=== PATIENT | female | born 1965 | race Caucasian/White ===

== ENCOUNTER 2017-08-21 08:42 | Outpatient (CLI) | payer OTHER ==
--- NOTE | 2017-08-21 12:57 | ULT ---
LEFT BREAST ULTRASOUND: Date: 08/21/17 HISTORY: Breast mass. COMPARISON: Diagnostic mammogram from same date. FINDINGS: Evaluation of the left breast was performed by the technologist and then real-time by the radiologis t. There is shadowing hypoechoic mass with peripheral echogenic halo with angular margins left breas t, 5 o'clock, 4.0 cm from the nipple, measuring 2.5 x 1.9 cm. There are abnormal calcifications with in this mass. IMPRESSION: BIRADS 5: Highly Suggestive of Malignancy Ultrasound guided biopsy recommended. Patient is on the Fast[employer] and therefore biopsy will be done today. Findings were discussed with yoseph yun patient at the time of the examination. POS: GILBERT
--- NOTE | 2017-08-21 13:00 | ULT ---
ULTRASOUND GUIDED BREAST BIOPSY: Date: 08/21/17 HISTORY: Breast mass. COMPARISON: Breast ultrasound from same date. Diagnostic mammogram from same date. TECHNIQUE/FINDINGS: Patient was brought to the ultrasound suite. All questions were answered. Informed consent was obtai tomasz. Timeout was performed. The left breast was prepped and draped in the normal sterile fashion. 4 mL of buffered lidocaine was instilled into the superficial deep soft tissues. A total of three 14 gauge cores of the breast mas s were obtained. This was done with meticulous technique as to prevent rupture of the breast implant . The patient tolerated the procedure well. A clip was placed. Post clip mammogram demonstrated sati sfactory placement of the clip. IMPRESSION: Technically successful left breast mass biopsy. Pathology is pending. POS: GILBERT
--- NOTE | 2017-08-21 13:09 | MMO ---
BILATERAL DIAGNOSTIC MAMMOGRAM: Date: 08/21/17 HISTORY: Palpable mass left breast. COMPARISON: None available. TECHNIQUE: Bilateral diagnostic CC, MLO, and ML mammograms, as well as implant displaced CC and MLO mammograms, as well as left spot compression CC and MLO mammograms. This patient's mammogram was interpreted with the assistance of computer-aided detection. FINDINGS: There are scattered fibroglandular densities. The palpable marker has a spiculated mass with heterog eneous suspicious calcifications in a ductal orientation. Implants are intact. No abnormal lymph nodes. IMPRESSION: BIRADS 5: Highly Suggestive of Malignancy Ultrasound guided biopsy is recommended. Findings discussed with patient at the time of examination. The patient's physician is a Cristina brand hymeliton and therefore a biopsy will be performed. POS: GILBERT
--- NOTE | 2017-08-21 13:10 | MMO ---
LEFT BREAST DIAGNOSTIC POST CLIP MAMMOGRAM: Date: 08/21/17 HISTORY: Post clip biopsy mammogram. Patient just had a biopsy and mammogram is obtained to evaluate for clip placement and to ensure satisfactory positioning of the biopsy. FINDINGS: The clip is in satisfactory position within the left breast mass. IMPRESSION: Satisfactory appearance of the breast clip biopsy. POS: GILBERT
== END 2017-08-21 08:43 | disposition home or self-care (01) ==
LOC: MAMMO 08:42
PROVIDERS: ATTEND Family Medicine
DX: N63.20 Unspecified lump in the left breast, unspecified quadrant (principal); C50.912 Malignant neoplasm of unspecified site of left female breast
CPT/HCPCS: 19083; 77066; 88305; 88341; 88342; G0204; G0206-LT

== ENCOUNTER 2017-09-05 08:28 | Outpatient (CLI) | payer OTHER ==
--- NOTE | 2017-09-05 14:02 | PET ---
PET CT: HISTORY: A 51-year-old female with invasive ductal carcinoma of the left breast. Exam was requested for resta ging. TECHNIQUE: PET scanning with CT attenuation correction was performed from the base of the brain through the prox imal thighs following the intravenous administration of 12 mCi [id number] in the right an tecubital fossa. Imaging was performed after an uptake interval of 45 minutes. COMPARISON: None. FINDINGS: There is increased uptake in the left breast mass with an SUV of 6. No dorian hypermetabolism is seen in the axillae, internal mammary, mediastinal, hilar, cervical, or abdominopelvic lymph nodes. No hypermetabolic liver, adrenal, or skeletal lesions are identified. There is increased focal uptake in the left adnexa (likely ovary) with an SUV of 4.5. There is physiologic activity in the GI and tracts and the visualized portions of the brain. The CT scan used for attenuation correction demonstrates no evidence of pleural effusions or ascites. Bilateral breast implants are present. The patient is status post hysterectomy and cholecystectomy . There is sigmoid diverticulosis. IMPRESSION: 1. Left breast malignancy. No definite evidence of metastatic disease. 2. Focally increased uptake in the left adnexa, likely ovary. It cannot be said with certainty if t his is physiologic or pathologic(neoplastic). Further evaluation with pelvic ultrasound is recommend ed. POS: GILBERT
== END 2017-09-05 08:29 | disposition home or self-care (01) ==
LOC: PET 08:28
PROVIDERS: ATTEND Internal Medicine Hematology & Oncology
DX: C50.512 Malignant neoplasm of lower-outer quadrant of left female breast (principal)
CPT/HCPCS: 78815; A9552

== ENCOUNTER 2017-10-02 11:08 | Outpatient (CLI) | payer OTHER ==
[2017-10-02 14:48] LABS: Bilirubin Negative (Negative); Blood, Urine Negative (Negative); Glucose, Urine (Dipstick) Negative (Negative); Ketone, Urine Negative (Negative); Nitrite Negative (Negative); Protein, Urine (Dipstick) Negative (Neg-Trace); Urobilinogen 0.2 mg/dL (0.2-1.0)
[2017-10-02 14:54] LABS: Bacteria/HPF None Seen HPF (None Seen); Hyaline Casts/LPF 0-3 HYALINE CAST LPF (0-3 Hyaline); RBC/HPF 0-3 HPF (0-3); Squamous Epithelial 0-3 HPF (0-3); WBC/HPF None Seen HPF (0-3)
[2017-10-02 14:55] LABS: #Eosinphils 0.1 thou/uL (0.0-0.7); #Lymphocytes 2.1 thou/uL (1.20-3.40); #Monocytes 0.6 thou/uL (0.11-0.59); #Neutrophils 5.7 thou/uL (1.40-6.50); %Basophils 0.4 % (0.0-1.0); %Eosinophils 1.3 % (0.0-10.0); %Monocytes 6.6 % (0.0-10.0); Hematocrit 44.2 % (36.0-47.0); Mean Platelet Volume 8.1 fL (7.4-10.4); Red Blood Cell (RBC) Count 4.51 mill/uL (4.20-5.40); White Blood Cell (WBC) Count 8.5 thou/uL (4.8-10.8)
[2017-10-02 15:09] LABS: Anion Gap 9 mmol/L (10-20); BUN (Urea Nitrogen) 16 mg/dL (9.8-20.1); Calc. Creatinine Clearance 0 mL/min (70-130); Calcium 9.6 mg/dL (7.8-10.44); Carbon Dioxide 27 mmol/L (22-29); Chloride 105 mmol/L (98-107); Estimated GFR-MDRD 67
== END 2017-10-02 11:09 | disposition home or self-care (01) ==
LOC: LABBT 11:08
PROVIDERS: ATTEND Surgery
DX: Z01.818 Encounter for other preprocedural examination (principal); C50.912 Malignant neoplasm of unspecified site of left female breast
CPT/HCPCS: 80048; 81001; 85025; 93005; 93010

== ENCOUNTER 2017-10-09 07:15 | Inpatient (IN) | payer OTHER ==
[2017-10-02 11:31] VITALS: BMI 27.8
[2017-10-09] MEDS ORDERED: CEFAZOLIN/Water 2 GM/20 ML SYRINGE ONE (09:26)
--- NOTE | 2017-10-09 10:46 | NM ---
RADIONUCLIDE LYMPHOSCINTIGRAPHY LEFT BREAST: Date: 10/09/17 HISTORY: Left breast cancer. FINDINGS: After explaining the procedure and answering all questions, the periareolar skin of the left breast w as cleansed. Sterile technique was used to carefully inject a total of 0.4 mCi technetium-99m filtere d sulfur colloid in a total volume of 1 mL in four equal aliquots intradermally at the 12 o'clock, 3 o'clock, 6 o'clock, and 9 o'clock positions of the left breast. Immediate imaging showed focal uptake at the axillary tail of the left breast. Skin over the uptake was marked and patient was sent for surgery. Patient tolerated the procedure wel l and was transferred in good condition. IMPRESSION: Technically successful lymphoscintigraphy left breast revealing single sentinel lymph node at the axi llary tail left breast. POS: GILBERT
[2017-10-09] MEDS ORDERED: Bupivacaine/Epinephrine 0.25% 30 ML VIAL ONE ×2 (10:51→13:21)
[2017-10-09] MEDS ORDERED: Propofol 200 MG/20 ML VIAL ONE (11:12)
[2017-10-09] MEDS ORDERED: Dexamethasone 20 MG/5 ML VIAL ONE (11:12)
[2017-10-09] MEDS ORDERED: Ondansetron HCl/PF 4 MG/2 ML Vial ONE (11:12)
[2017-10-09] MEDS ORDERED: Ketorolac Tromethamine 30 MG/ML VIAL ONE (11:12)
[2017-10-09] MEDS ORDERED: ePHEDrine/0.9% NaCl/PF SYRINGE 50 mg/10 ml ONE (11:12)
[2017-10-09] MEDS ORDERED: Lidocaine 1% PF 5 ML VIAL ONE (11:12)
[2017-10-09] MEDS ORDERED: Metoclopramide HCl 10 MG/2 ML VIAL ONE (11:12)
[2017-10-09] MEDS ORDERED: Midazolam HCl 2 mg/2 ml Vial ONE ×2 (11:14→11:26)
[2017-10-09] MEDS ORDERED: Fentanyl 250 MCG/5 ML VIAL ONE (11:14)
[2017-10-09] MEDS ORDERED: HYDROmorphone 0.5 MG/0.5 ML SYRINGE ONE (11:15)
[2017-10-09] MEDS ORDERED: Propofol 1,000 MG/100 ML VIAL IV ONE (11:54)
[2017-10-09] MEDS ORDERED: Clindamycin/D5W 900 mg/50 ml Premix Bag ONE (12:02)
[2017-10-09] MEDS ORDERED: Thrombin 5000 UNITS/5 ML VIAL ONE (12:41)
[2017-10-09] MEDS ORDERED: Calcium Chloride 1 GM/10 ML Abboject SYRINGE ONE (12:42)
[2017-10-09] MEDS ORDERED: Levofloxacin 500 mg/D5W 100 ml Premix Bag ONE (13:01)
[2017-10-09] MEDS ORDERED: Fentanyl 100 MCG/2 ML VIAL ONE ×2 (16:31→17:08)
[2017-10-09] MEDS ORDERED: Promethazine HCl 25 MG/ML VIAL ONE (17:35)
[2017-10-09] MEDS ORDERED: diphenhydrAMINE 50 MG/ML VIAL IM PRN (18:14)
[2017-10-09] MEDS ORDERED: Ondansetron HCl/PF 4 MG/2 ML Vial IVP PRN ×3 (18:14→21:21)
[2017-10-09] MEDS ORDERED: Zolpidem Tartrate 5 MG TAB PO PRN (18:14)
[2017-10-09] MEDS ORDERED: diphenhydrAMINE 25 MG CAP PO PRN (18:14)
[2017-10-09] MEDS ORDERED: diphenhydrAMINE 50 MG/ML VIAL IVP PRN (18:14)
[2017-10-09] MEDS ORDERED: Naloxone HCl 0.4 mg/ml Vial IV PRN (18:14)
[2017-10-09] MEDS ORDERED: Fentanyl 5000 MCG/250 ML CADD IVPB PRN (18:14)
[2017-10-09] MEDS ORDERED: Promethazine HCl 25 MG/ML VIAL IM PRN ×2 (18:14→21:21)
[2017-10-09] MEDS ORDERED: Communication Order-Pharmacy FS SCH (18:15)
[2017-10-09] MEDS ORDERED: Dextrose 5% in Water 1,000 ML IV PRN (20:11)
[2017-10-09] MEDS ORDERED: hydrALAZINE 20 MG/ML VIAL SLOW IVP PRN (20:11)
[2017-10-09] MEDS ORDERED: Dextrose 50% Abboject 50 ML SYRINGE SLOW IVP PRN (20:11)
[2017-10-09] MEDS ORDERED: Promethazine HCl 25 MG/ML VIAL SLOW IVP PRN (21:21)
[2017-10-10] MEDS ORDERED: Levothyroxine Sodium 75 MCG TAB PO SCH (06:00)
[2017-10-10] MEDS: D5 1/2 NS w/20 mEq KCL 1,000 ML IV SCH ×2 (06:44→08:38)
[2017-10-10] MEDS: Famotidine 20 MG TAB PO SCH ×2 (06:45→09:27)
[2017-10-10] MEDS: Docusate 100 MG CAP PO SCH ×2 (06:45→09:27)
[2017-10-10 08:24] VITALS: BP 101/54; TEMP 98.7
[2017-10-10] MEDS ORDERED: HYDROcodone/Acetaminophen 10/325 mg Tablet PO PRN ×2 (10:46)
--- NOTE | 2017-10-10 14:07 | OP ---
DATE OF PROCEDURE: 10/09/2017 ATTENDING STAFF PHYSICIAN: Dr. Grey Rodríguez. SURGEONS: 1. Dr. Grey Rodríguez. 2. Dr. Paul Oconnell. PREOPERATIVE DIAGNOSES: 1. Recent diagnosis of breast cancer. 2. Abnormal PET scan showing abnormal left ovary. 3. Desires risk reduction oophorectomy. POSTOPERATIVE DIAGNOSES: 1. Recent diagnosis of breast cancer. 2. Abnormal PET scan showing abnormal left ovary. 3. Desires risk reduction oophorectomy. 4. Abdominal pelvic adhesions. PROCEDURES PERFORMED: 1. Diagnostic laparoscopy. 2. Robotic-assisted bilateral salpingo-oophorectomy. 3. Extensive lysis of adhesions. 4. Autologous hemocyte tissue grafting (PlazMax). ANESTHESIA: General endotracheal. FINDINGS: 1. Abnormal PET scan showing increased uptake in the left ovary and adnexal fossa. 2. Normal appearing ovaries on ultrasound. 3. Extensive abdominal pelvic adhesions - left colon to left pelvic sidewall, tube and ovary, omentu m to anterior cul-de-sac, right tubo-ovarian. COMPLICATIONS: None. SPECIMENS REMOVED: Bilateral fallopian tubes and ovaries. ESTIMATED BLOOD LOSS: Less than 100 mL. PROCEDURE FOLLOWS: After thorough consent and counseling, Ms. Jin was taken to the operating room and adequate level of anesthesia was obtained via general endotracheal anesthesia. The patient was p laced in the Mohan stirrups in the low leg position. Pelvic examination under anesthesia was perform ed. Findings were consistent with that in the clinical setting. The patient was noted to have a bruna gically absent cervix and uterus. There were no adnexal masses noted. There was no fixation or nodu larity of the cul-de-sac. The patient was then prepped and draped in the usual sterile fashion for [facility] vaginal and abdominal surgery. A sponge stick was placed. The patient was then prepped and drap ed in the usual sterile fashion for the Mohan surgical procedures. A speculum was placed in the vaginal canal and visualization of the vaginal cuff was obtained, which appeared normal. A sponge stick was placed in the vaginal canal to assist with manipulation of the v aginal cuff and cul-de-sac as necessary. A Benz was placed in the bladder, which was noted to be dr louisning clear urine. Attention was then turned to performing the robotic bilateral salpingo-oophorect brice. An infraumbilical incision was made and the old scar was excised. The incision was carried sharply t o the fascia. A Veress needle was then placed transabdominally with the usual safeguards carried out . Hanging drop water technique was utilized to ensure proper placement of the Veress needle. A 12 m m trocar and sleeve was then carefully placed transabdominally with usual safeguards carried out. Th e da Symplified robotic camera was then placed transabdominally and visualization of the upper abdomen and pelvis was obtained. There were filmy adhesions noted throughout the lower abdomen and pelvis. The re were dense adhesions noted from the descending colon to the left pelvic sidewall with essentially obliteration of the left ovarian fossa. There were filmy adhesions noted on the right side. There w ere also filmy adhesions noted to the bladder. Under direct laparoscopic visualization, the lateral ports were placed. Illumination technique was utilized to avoid vascular injury upon placement of th e lateral ports. Once the ports were placed, the patient was docked to the robot per protocol. I th en assumed my operating position at the da Philip surgical console. Under direct laparoscopic visualization, robotic instrumentation was carefully introduced into the ab domen and the pelvis. Instruments used to perform the RBSO included the Kleppinger bipolar forceps a nd the electrosurgical EndoShears. Initially, the filmy adhesions were carefully and meticulously ta kayleigh down. Attention was turned to removing the adhesions from the pelvic sidewall to the descending colon. Cold electrosurgical enterolysis was performed. Once the colon was free from the left pelvic sidewall and the left ovarian fossa, the left fallopian tube and ovary could be visualized. There w as a small paratubal cyst noted. The left fallopian tube was then grasped and retracted medially. T he left fallopian tube was then grasped at the uteroovarian ligament and vessels, coagulated and bhatia sected. Dissection was carried out through the mesosalpinx to the level of the infundibulopelvic lig ament and vessels. The tube was then transected. The ovary was carefully freed from the pelvic side wall. Once free, the ureter was carefully identified and noted to be traversing well off the operati ve planes. The infundibulopelvic ligament then could be identified. A rent was made in the peritone um below the left IP ligament and vessels. Once the ureter was again identified and noted to be linsey ersing out the operative field, the infundibulopelvic ligament vessels were crossclamped, coagulated and transected. Good hemostasis was noted. Additional lysis of adhesions was required to remove the left ovary from the pelvic sidewall. The descending colon was completely freed from the left pelvic sidewall, the pelvic brim and the lower part of the pelvic sidewall inferiorly. Good hemostasis was noted. Attention was then turned performing the LLSO. The filmy adhesions were taken down on the r ight. The ureter was then easily identified. The infundibulopelvic ligament vessels were carefully isolated. The fallopian tube on the right was grasped at the tubo-ovarian ligament. This pedicle wa s then crossclamped, coagulated and transected. Dissection was carried down the mesosalpinx to the I P ligament and vessels. The right fallopian tube was then carefully crossclamped, coagulated and tra nsected. Once again, the IP ligament vessels were then identified. The ureter was identified on the pelvic sidewall and noted to be traversing out of the operative field. A rent was made in the perit oneum below the right IP ligament and vessels. The right IP ligament vessels were then carefully quality control microbiology supervisor ssclamped, coagulated and then transected. Dissection was carried superiorly until the ovary was marion e from the pelvic sidewall. All specimens were placed in the anterior cul-de-sac. Completion of andrea is of adhesions was performed by removing the omentum from the anterior cul-de-sac. The pelvis was t hen irrigated with copious amount of warm normal saline. All surgical pedicles were inspected and no tommy to be hemostatic. Because of the extensive dissection and adhesions, autologous hemocyte tissue grafting was performed. Platelet poor plasma was injected over all. Surgical sites and areas where enterolysis was performed. PlazMax was injected in the anterior cul-de-sac and the posterior cul-de- sac as well. The ureters were again identified and were felt to be out of the operative planes. The umbilical trocar was then removed. The Josie suture guide was then placed in the umbilical incis ion. Using the Kimberly needle pick up driver, a suture was introduced on the right side under direct visualization. The suture guide was then placed on the left side and the suture was grasped and jovon vated out of the suture guide. The suture guide was then removed and the fascia was reapproximated u sing a 2-0 Vicryl suture. This was done under direct laparoscopic visualization. There was good bobo sure noted to the umbilical port. The remainder of the ports were then removed as was the CO2 gas. The incisions were then closed with subcutaneous ligatures of 2-0 plain in a subcuticular stitch of 4 -0 Monocryl. Each incision was then dressed with Dermabond. The sponge stick was removed from the v agina. Lap, sponge and needle counts were correct x3. Blood loss during the surgical procedure was less than [address] Oconnell presented to the OR at this point to carry out the mastectomy and his portion of the surg ical procedures. Please see his operative report for summary. Immediately following surgery, the patient and family were made aware of the surgical procedure and f indings. Questions were answered to their satisfaction.
--- NOTE | 2017-10-11 11:57 | OP ---
DATE OF PROCEDURE: 10/09/2017 PREOPERATIVE DIAGNOSIS: Left breast cancer, clinical stage T2 N0 MX. POSTOPERATIVE DIAGNOSIS: Left breast cancer, clinical stage T2 N0 MX. PROCEDURE: 1. Bilateral simple mastectomy, nipple-sparing. . 2. Left deep axillary node biopsy (sentinel node protocol). SURGEON: Felipe Oconnell M.D. ANESTHESIA: General. ESTIMATED BLOOD LOSS: Minimal. COMPLICATIONS: None. SPECIMEN: Each breast was marked with two short superior, one long lateral as well as the nipple was marked and sent to pathology for final diagnosis. INDICATION: The patient is a 51-year-old female who presents with a new diagnosis of left breast can cer, clinical stage T2 N0. Her BRCA testing was negative, but she elected to proceed with bilateral nipple-sparing mastectomy. She has already seen Dr. Sanz who recommended a delayed reconstruction. TECHNIQUE: The patient was taken to the operating room and placed supine on the table. She had alre aide had preoperative lymphoscintigraphy performed and x-ray which revealed uptake in the left axilla. Her bilateral chest, neck, arms were prepped and draped in a sterile fashion. A 7 cm incision was made just above in inframammary crease. Dissection was taken down to the muscle of the chest wall. The posterior plane was mobilized all the way to the sternum, latissimus dorsi as well as up near the clavicle. The right breast was done first. Next, the subcutaneous plane was raised by raising skin flaps all the way up to the same landmarks. Care was taken to avoid being too close to the skin. T he tail of the breast was removed with the specimen. The specimen is marked with two short superior, one long lateral, the nipple is marked on the specimen using a Prolene suture. Meticulous hemostasi s was obtained in the mastectomy bed. A 19 round drain brought out lateral, incision is irrigated an d closed using 3-0 Vicryl, 4-0 Monocryl, and Dermabond. Next, an inframammary fold crease incision i s made on the left as well and the mastectomy was performed in the same way by doing the posterior di ssection first all the way to the sternum, latissimus dorsi clavicle. The subcutaneous flaps are mccain sed all the way to the same landmarks thus removing the breast, the nipple was left in place. The sp ecimen was marked with two short superior, one long lateral, the nipple was marked using Prolene. Th e mastectomy cavity cavities irrigated and closed after a #19 round drain is brought out through a se parate stab incision and closed using 3-0 Vicryl, 4-0 Monocryl, and Dermabond. The patient was en ro erick to recovery in stable condition. All instrument counts, needle counts, and lap counts were corre ct.
== END 2017-10-10 12:30 | disposition home or self-care (01) | DRG 581 ==
LOC: SDC 07:15 → 3SW 19:21
PROVIDERS: ADMIT Surgery; ATTEND Surgery
PROC: 0HTV0ZZ Resection of Bilateral Breast, Open Approach (ICD-10-PCS; principal; 2017-10-09)
PROC: 0UT24ZZ Resection of Bilateral Ovaries, Percutaneous Endoscopic Approach (ICD-10-PCS; 2017-10-09)
PROC: 0UT74ZZ Resection of Bilateral Fallopian Tubes, Percutaneous Endoscopic Approach (ICD-10-PCS; 2017-10-09)
PROC: 0DNW4ZZ Release Peritoneum, Percutaneous Endoscopic Approach (ICD-10-PCS; 2017-10-09)
PROC: 07B60ZX Excision of Left Axillary Lymphatic, Open Approach, Diagnostic (ICD-10-PCS; 2017-10-09)
PROC: 8E0W4CZ Robotic Assisted Procedure of Trunk Region, Percutaneous Endoscopic Approach (ICD-10-PCS; 2017-10-09)
PROC: C71L1ZZ Planar Nuclear Medicine Imaging of Upper Chest Lymphatics using Technetium 99m (Tc-99m) (ICD-10-PCS; 2017-10-09)
DX: C50.512 Malignant neoplasm of lower-outer quadrant of left female breast (principal); E03.9 Hypothyroidism, unspecified; Z17.0 Estrogen receptor positive status [ER+]; Z98.82 Breast implant status; N73.6 Female pelvic peritoneal adhesions (postinfective); Z40.01 Encounter for prophylactic removal of breast; Z40.02 Encounter for prophylactic removal of ovary(s); N83.8 Other noninflammatory disorders of ovary, fallopian tube and broad ligament; Z90.710 Acquired absence of both cervix and uterus; Z80.41 Family history of malignant neoplasm of ovary; Z80.3 Family history of malignant neoplasm of breast
CPT/HCPCS: 78195; 88304; 88305; 88307; 88309; 88342; A9541; J0131; J1100; J1170; J1885; J1956; J2001; J2250; J2405; J2550; J2704; J2765; J3010; J3490; Q9968

== ENCOUNTER 2017-11-02 09:31 | Day surgery (SDC) | payer OTHER ==
[2017-11-01 10:24] VITALS: BMI 26.6
[2017-11-02] MEDS ORDERED: Heparin 5,000 UNITS/ML VIAL ONE (10:59)
[2017-11-02] MEDS ORDERED: CEFAZOLIN/Water 2 GM/20 ML SYRINGE ONE (10:59)
[2017-11-02] MEDS ORDERED: Gentamicin 80 MG/2 ML VIAL ONE ×2 (11:17→14:38)
[2017-11-02] MEDS ORDERED: Bupivacaine/Epinephrine 0.25% 30 ML VIAL ONE ×3 (11:17→14:15)
[2017-11-02] MEDS ORDERED: Fentanyl 100 MCG/2 ML VIAL ONE ×3 (11:18→16:06)
[2017-11-02] MEDS ORDERED: Sodium Chloride 0.9% 0 ML ONE (11:18)
[2017-11-02] MEDS ORDERED: Midazolam HCl 2 mg/2 ml Vial ONE ×3 (11:18→18:24)
[2017-11-02] MEDS ORDERED: Ondansetron HCl/PF 4 MG/2 ML Vial IVP PRN (12:07)
[2017-11-02] MEDS ORDERED: HYDROcodone/Acetaminophen 10/325 mg Tablet PO PRN ×2 (12:07)
[2017-11-02] MEDS ORDERED: Fentanyl 100 MCG/2 ML VIAL IV PRN (12:07)
[2017-11-02] MEDS ORDERED: Promethazine HCl 25 MG/ML VIAL IM PRN (12:07)
[2017-11-02] MEDS ORDERED: Zolpidem Tartrate 5 MG TAB PO PRN (12:07)
[2017-11-02] MEDS ORDERED: traMADol HCl 50 MG TAB PO PRN ×2 (12:07)
[2017-11-02] MEDS ORDERED: Ropivacaine HCl/PF 750 ML in Premix Bag 1 BAG NERVE BLCK SCH (12:15)
[2017-11-02] MEDS ORDERED: Ropivacaine 0.2% HCl/PF 20 ML ONE ×2 (12:34→14:16)
[2017-11-02] MEDS ORDERED: Clindamycin/D5W 900 mg/50 ml Premix Bag ONE (13:01)
[2017-11-02] MEDS ORDERED: Levofloxacin 500 mg/D5W 100 ml Premix Bag ONE (13:01)
[2017-11-02] MEDS ORDERED: Bupivacaine 0.25% HCL 30 ML VIAL ONE (14:14)
[2017-11-02] MEDS ORDERED: Sodium Chloride 0.9% 20 ML ONE (14:38)
[2017-11-02] MEDS ORDERED: Ropivacaine 0.5% HCl/PF (150 MG/30 ML VIAL) ONE (16:10)
[2017-11-02] MEDS ORDERED: Promethazine HCl 25 MG/ML VIAL ONE (16:15)
[2017-11-02] MEDS ORDERED: Ketorolac Tromethamine 30 MG/ML VIAL IVP SCH (18:00)
[2017-11-02] MEDS ORDERED: Lidocaine 1% (PF) 30 ML VIAL ONE (18:12)
[2017-11-02] MEDS ORDERED: HYDROcodone/Acetaminophen 5/325 mg Tablet ONE (19:43)
--- NOTE | 2017-11-02 23:12 | OP ---
PREOPERATIVE DIAGNOSIS: Breast cancer. POSTOPERATIVE DIAGNOSIS: 1. Breast cancer. 2. Status post bilateral mastectomy. 3. History of breast implants. PROCEDURES: 1. Bilateral placement of tissue expanders (49259.50). 2. Placement of acellular dermis (120 cm2) (30018, 59930). DESCRIPTION OF PROCEDURE: Following induction of adequate anesthesia, the patient was prepped and dr aped in the usual sterile fashion in the supine position. The patient's existing inframammary scar w as incised. Dissection was carried sharply down through the subcutaneous tissue. The patient's prev ious implant pocket was identified and incised. The pocket was opened. The pocket had constricted i n the intervening weeks where it was always too high for the placement of tissue consultant in ergonomics and safety, it was abo ve the inframammary crease. Therefore, a capsulotomy was performed from 4 o'clock to 6 o'clock to 8 o'clock. This allowed retraction superiorly to cover the inferior pole of the consultant in ergonomics and safety. AlloDerm ap proximately 60 cm2 on each side was sewn into place at the inframammary fold as well as to the window shading capsule superiorly. A 2-0 and 3-0 PDS suture used for this. The consultant in ergonomics and safety was placed in the previous implant pocket and secured with the suture tabs. A similar procedure was done on each side . On the left side, the underlying previous implant pocket was at first lifted up for 2 cm in a ____ _ pocket fashion. This was repaired with 2-0 PDS suture. The field was copiously irrigated with dil erick antibiotic solution and dilute Betadine solution with new gloves being done for any placement of AlloDerm or expanders. The expanders were also irrigated with antibiotic solution prior to completel y opening the consultant in ergonomics and safety container. The consultant in ergonomics and safety was then filled to 400 mL each. OPERATIVE FINDINGS: 1. Right breast tissue consultant in ergonomics and safety ARTOURA smooth high profile tissue consultant in ergonomics and safety, reference #[id number], s erial #[id number] filled to 400 mL. 2. Left breast tissue consultant in ergonomics and safety ARTOURA smooth high profile tissue consultant in ergonomics and safety, reference #[id number], se rial #[id number] filled to 400 mL. 3. AlloDerm used was AlloDerm RTU, lot #[id number], reference #[id number].
== END 2017-11-02 19:54 | disposition home or self-care (01) ==
LOC: SDC 09:31
PROVIDERS: ATTEND Plastic Surgery
PROC: 0HHV0NZ Insertion of Tissue Expander into Bilateral Breast, Open Approach (ICD-10-PCS; principal; 2017-11-02)
PROC: 0HRVXKZ (ICD-10-PCS; principal; 2017-11-02)
DX: C50.912 Malignant neoplasm of unspecified site of left female breast (principal); E03.9 Hypothyroidism, unspecified; Z79.899 Other long term (current) drug therapy; Z88.1 Allergy status to other antibiotic agents; Z88.5 Allergy status to narcotic agent; Z88.8 Allergy status to other drugs, medicaments and biological substances; Z90.13 Acquired absence of bilateral breasts and nipples; Z90.49 Acquired absence of other specified parts of digestive tract; Z90.710 Acquired absence of both cervix and uterus; Z90.79 Acquired absence of other genital organ(s); Z90.722 Acquired absence of ovaries, bilateral; Z98.890 Other specified postprocedural states
CPT/HCPCS: 96374; A4216; J1580; J1644; J1956; J2001; J2250; J2550; J2795; J3010; J3370; J3490; Q4116; S0020

== ENCOUNTER 2017-11-22 15:05 | Outpatient (CLI) | payer OTHER | END 2017-11-22 15:06 | disposition home or self-care (01) | LOC: BICMAMMO 15:05 | PROVIDERS: ATTEND Internal Medicine Hematology & Oncology | DX: Z12.31 Encounter for screening mammogram for malignant neoplasm of breast (principal) | CPT/HCPCS: 77080 ==

== ENCOUNTER 2018-03-04 05:56 | Day surgery (SDC) | payer OTHER ==
[2018-03-01 10:07] VITALS: BMI 26.9
[2018-03-04] MEDS ORDERED: CEFAZOLIN/Water 2 GM/20 ML SYRINGE ONE (06:13)
[2018-03-04] MEDS ORDERED: Heparin 5,000 UNITS/ML VIAL ONE (06:13)
[2018-03-04] MEDS ORDERED: CEFAZOLIN 1 GM VIAL ONE (06:13)
[2018-03-04] MEDS ORDERED: Sodium Chloride 0.9% 20 ML ONE (06:41)
[2018-03-04] MEDS ORDERED: Gentamicin 80 MG/2 ML VIAL ONE (06:41)
[2018-03-04] MEDS ORDERED: Bupivacaine/Epinephrine 0.25% 30 ML VIAL ONE (06:41)
[2018-03-04] MEDS ORDERED: Fentanyl 250 MCG/5 ML VIAL ONE (07:05)
[2018-03-04] MEDS ORDERED: Midazolam HCl 2 mg/2 ml Vial ONE (07:05)
[2018-03-04] MEDS ORDERED: Ketamine 50 MG/ML VIAL ONE (07:05)
[2018-03-04] MEDS ORDERED: EPINEPHrine 1 MG/ML AMP ONE (07:41)
[2018-03-04] MEDS ORDERED: Ondansetron HCl/PF 4 MG/2 ML Vial ONE ×2 (08:10→11:35)
[2018-03-04] MEDS ORDERED: Meperidine HCl/PF 25 MG/ML VIAL ONE (11:03)
[2018-03-04] MEDS ORDERED: Fentanyl 100 MCG/2 ML VIAL ONE (11:13)
[2018-03-04] MEDS ORDERED: PHENYLEPHRINE-NS 100 MCG/ML 10 ML SYRINGE ONE (11:35)
[2018-03-04] MEDS ORDERED: Dexamethasone 20 MG/5 ML VIAL ONE (11:35)
[2018-03-04] MEDS ORDERED: Glycopyrrolate 0.2 MG/ML 5 ML SYRINGE ONE (11:35)
[2018-03-04] MEDS ORDERED: PROPOFOL 200 MG/20 ML VIAL ONE (11:35)
[2018-03-04] MEDS ORDERED: ePHEDrine/0.9% NaCl/PF SYRINGE 50 mg/10 ml ONE (11:35)
[2018-03-04] MEDS ORDERED: Lidocaine 1% PF 5 ML VIAL ONE (11:35)
--- NOTE | 2018-03-05 14:00 | OP ---
DATE OF PROCEDURE: 03/04/2018 PREOPERATIVE DIAGNOSES: 1. Breast cancer. 2. Status post bilateral mastectomy. 3. Status post bilateral tissue slide fasteners inspector placement. PROCEDURES: 1. Replacement of bilateral tissue expanders with implants involving capsule work (66482.50). 2. Fat grafting to right breast (92395). OPERATIVE FINDINGS: 1. Right breast implant, [place], reference number [id number], serial number [id number]. 2. Left breast implant, [place], reference number [id number], serial number [id number]. PROCEDURE IN DETAIL: Following induction of adequate anesthesia, the patient was prepped and draped in the usual sterile fashion in supine position. A right inframammary crease incision was made. Dis section was carried sharply down through the subcutaneous tissue to the underlying pocket. The exist ing tissue slide fasteners inspector was deflated and removed. The pocket was inspected. The pocket was then opened to accommodate a larger implant. This included release of the pocket from 10 to 12 to 2 o'clock as w ell as extensively laterally. The pocket was then copiously irrigated and inspected for meticulous h emostasis prior to placement of the above implant. The pocket was copiously irrigated with dilute an tibiotic solution and dilute Betadine solution prior to placement to a barrier dressing and insertion of the implant using a no touch technique with fresh gloves donned. The pocket was inspected for me ticulous hemostasis prior to closure with 3-0 PDS suture and 3-0 Monocryl suture. Similar procedure was done on the left side with left lateral pocket opening required. The patient was noted to have a small contour defect on the upper inner quadrant of the right side. Fat was harvested after tumescent fluid was infiltrated into the upper abdomen. This was allowed to separate and the fluid was decanted. The fat was then injected using micro droplet technique through a needle stab incision. The plane was immediately subdermal. Approximately 30 mL of fat was inject ed. The patient tolerated the procedure well.
== END 2018-03-04 13:20 | disposition home or self-care (01) ==
LOC: EEVIPCON 05:56 → SDC 05:56
PROVIDERS: ATTEND Plastic Surgery
PROC: 0HPU0NZ Removal of Tissue Expander from Left Breast, Open Approach (ICD-10-PCS; principal; 2018-03-04)
PROC: 0H0V37Z Alteration of Bilateral Breast with Autologous Tissue Substitute, Percutaneous Approach (ICD-10-PCS; principal; 2018-03-04)
PROC: 0HRV0JZ Replacement of Bilateral Breast with Synthetic Substitute, Open Approach (ICD-10-PCS; principal; 2018-03-04)
PROC: 0HPT0NZ Removal of Tissue Expander from Right Breast, Open Approach (ICD-10-PCS; principal; 2018-03-04)
DX: C50.919 Malignant neoplasm of unspecified site of unspecified female breast (principal); E03.9 Hypothyroidism, unspecified; E55.9 Vitamin D deficiency, unspecified; Z88.5 Allergy status to narcotic agent; Z88.1 Allergy status to other antibiotic agents; Z79.811 Long term (current) use of aromatase inhibitors; Z79.899 Other long term (current) drug therapy; Z91.048 Other nonmedicinal substance allergy status
CPT/HCPCS: 96374; A4216; J0171; J0690; J1100; J1580; J1644; J2001; J2175; J2250; J2405; J2704; J3010; J3370; J3490

== ENCOUNTER 2018-05-06 16:11 | Emergency (ER) | payer OTHER ==
[2018-05-06 17:29] LABS: Bilirubin Negative (Negative); Blood, Urine Small (Negative); Clarity Clear (Clear); Glucose, Urine (Dipstick) Negative (Negative); Leukocyte Negative (Negative); Nitrite Negative (Negative); Protein, Urine (Dipstick) Negative (Neg-Trace); Urobilinogen 0.2 mg/dL (0.2-1.0); pH, Urine 6.5 (5.0-9.0)
[2018-05-06 17:30] LABS: #Lymphocytes 0.6 thou/uL (1.20-3.40); #Monocytes 0.1 thou/uL (0.11-0.59); #Neutrophils 7.3 thou/uL (1.40-6.50); %Basophils 0.5 % (0.0-1.0); %Lymphocytes 7.7 % (21.0-51.0); %Monocytes 0.7 % (0.0-10.0); %Neutrophils 91.1 % (42.0-75.0); Hemoglobin 14.7 g/dL (12.0-16.0); Mean Corpuscular HGB CONC 34.7 g/dL (32.0-36.0); Mean Corpuscular Hemoglobin 30.5 pg (27.0-31.0); Mean Corpuscular Volume 87.8 fL (78.0-98.0); Mean Platelet Volume 7.6 fL (7.4-10.4); Platelet Count 216 thou/uL (130-400); RBC Distribution Width 10.7 % (11.5-14.5); Red Blood Cell (RBC) Count 4.83 mill/uL (4.20-5.40)
[2018-05-06 17:31] LABS: Specific Gravity, Urine 1.005 (1.002-1.036)
[2018-05-06 17:33] LABS: Bacteria/HPF Rare-Few HPF (None Seen); RBC/HPF 0-3 HPF (0-3); WBC/HPF None Seen HPF (0-3)
[2018-05-06 17:43] LABS: ALT (SGPT) 15 U/L (8-55); AST (SGOT) 14 U/L (5-34); Albumin 4.9 g/dL (3.5-5.0); Alkaline Phosphatase 111 U/L (40-150); Anion Gap 15 mmol/L (10-20); BUN (Urea Nitrogen) 16 mg/dL (9.8-20.1); Bilirubin, Total 0.4 mg/dL (0.2-1.2); Calc. Creatinine Clearance 0 mL/min (70-130); Calcium 10.3 mg/dL (7.8-10.44); Carbon Dioxide 25 mmol/L (22-29); Chloride 107 mmol/L (98-107); Estimated GFR-MDRD 58; Globulin 2.9 g/dL (2.4-3.5); Glucose 213 mg/dL (70-105); Lipase 14 U/L (8-78); Potassium 3.7 mmol/L (3.5-5.1); Protein, Total 7.8 g/dL (6.0-8.3); Sodium 143 mmol/L (136-145)
[2018-05-06 17:47] LABS: CKMB 1.7 ng/mL (0-6.6); Troponin I Less than 0.010 ng/mL (< 0.028)
== END 2018-05-06 18:18 | disposition home or self-care (01) ==
LOC: SCSER 16:11
DX: R53.1 Weakness (principal); E03.9 Hypothyroidism, unspecified; Z85.3 Personal history of malignant neoplasm of breast
CPT/HCPCS: 36415; 80053; 81003; 81015; 82553; 83690; 84443; 84484; 85025; 93005

== ENCOUNTER 2018-06-13 09:14 | Outpatient (CLI) | payer OTHER | END 2018-06-13 09:15 | disposition home or self-care (01) | LOC: BICULT 09:14 | PROVIDERS: ATTEND Plastic Surgery | DX: N64.4 Mastodynia (principal); N63.20 Unspecified lump in the left breast, unspecified quadrant; Z98.82 Breast implant status; Z90.12 Acquired absence of left breast and nipple ==

== ENCOUNTER 2018-09-06 07:16 | Outpatient (CLI) | payer OTHER ==
--- NOTE | 2018-09-06 08:52 | CT ---
CT NECK SOFT TISSUES: Date: 09/06/18 HISTORY: 52-year-old female with history of left mastectomy for left breast cancer, presents with right neck s welling. FINDINGS: There is no evidence of significant cervical lymphadenopathy, solid or cystic lesion, hematoma, or ab scess, in the neck. The stator plate washer, parotid, carotid, parapharyngeal, perivertebral, retropharyngeal, visceral, pharyngeal mucosal, submandibular, and posterior cervical, spaces, are normal. Lung apices are grossly clear. Upper portions of bilateral breast implants are visualized. Unremarkable larynx a nd thyroid gland. No destructive osseous lesion of the cervical spine. IMPRESSION: Negative. POS: [facility]
[2018-09-06] MEDS ORDERED: Iopamidol 370 76% 100 ML VIAL ONE (09:00)
--- NOTE | 2018-09-06 09:55 | CT ---
CT THORAX WITH CONTRAST: DATE: 08/27/2018. HISTORY: 52-year-old female status post left mastectomy for left breast cancer presents with palpable lump at inferior aspect of the right breast. TECHNIQUE: IV iodinated contrast media: Isovue 370. FINDINGS: There are bilateral breast implants. No obvious solid or cystic mass is identified in the right [address]. No mediastinal or hilar lymphadenopathy. Trachea and major bronchi are patent and clear. No pl eural effusion, pericardial effusion, or pneumothorax. The lungs are essentially clear. No destruct monico osseous lesion identified. There are enlarged right axillary lymph nodes, but they have fatty hi la. IMPRESSION: 1. Bilateral breast implants. 2. Otherwise negative. 3. For palpable breast lump, breast ultrasound and mammogram are recommended. OBEY Davenport POS: JOHANNY
--- NOTE | 2018-09-06 12:04 | RAD ---
CHEST TWO VIEWS: HISTORY: Cough. COMPARISON: 01/05/2016 FINDINGS: The cardiac silhouette and pulmonary vasculature are unremarkable. The mediastinum is midline. No c onfluent air space consolidation, pneumothorax, or pleural fluid. IMPRESSION: No active cardiopulmonary abnormalities demonstrated. POS: [facility]
== END 2018-09-06 07:17 | disposition home or self-care (01) ==
LOC: SCSCT 07:16
PROVIDERS: ATTEND Plastic Surgery
DX: R05 Cough (principal); R22.2 Localized swelling, mass and lump, trunk; N63.0 Unspecified lump in unspecified breast; Z98.82 Breast implant status; Z85.3 Personal history of malignant neoplasm of breast
CPT/HCPCS: 70491; 71046; 71260

== ENCOUNTER 2018-09-17 11:09 | Outpatient (CLI) | payer OTHER ==
--- NOTE | 2018-09-17 16:54 | ULT ---
RIGHT BREAST ULTRASOUND: Date: 09/17/18 HISTORY: 52-year-old female with history of breast cancer and post mastectomy. Patient complains of palpable m ass in the right breast. FINDINGS: Sonographic evaluation of the region of palpable concern in the region of the right breast (9 o'clock position), demonstrates a well circumscribed, oval, solid, nonshadowing mass measuring 1.5 x 0.6 x 1 .5 cm. This should be evaluated with an ultrasound guided biopsy. IMPRESSION: BIRADS Category 4 - Suspicious abnormality. Ultrasound guided biopsy of the palpable mass is recommended. Discussed in person with the patient at 1325 hours. POS: OFF
--- NOTE | 2018-09-17 19:27 | ULT ---
ULTRASOUND GUIDED RIGHT BREAST BIOPSY ULTRASOUND GUIDED CLIP MARKING PLACEMENT OF THE LATERAL RIGHT BREAST. 09/17/18 CLINICAL HISTORY: Right breast mass, outer quadrant. PROCEDURE: Informed consent was obtained. The patient was escorted to the Procedural Suite and the right breast mass of interest was localized sonographically. The right breast was prepped and draped in the standa rd sterile fashion. Topical anesthesia was achieved with buffered 1% lidocaine. Small skin incision w as made through which 14 gauge biopsy needle was advanced to the leading edge of the mass. Three sepa rate core specimens of the mass were acquired. Placed in sealed formalin container and sent to Pathrom[facility] mathew for further analysis. Biopsy needle was removed. Biopsy marking clip was then advanced and deploy ed within the mass of interest. No procedural complication. Patient was escorted to Mammography to undergo clip placement views which did reveal clip within the expected region of the laterally located right breast mass. IMPRESSION: Technically successful right breast ultrasound guided biopsy and marking clip placement. Pathology re sults are pending. Patient will be notified when they are received. POS: GILBERT
== END 2018-09-17 11:10 | disposition home or self-care (01) ==
LOC: BICULT 11:09
PROVIDERS: ATTEND Family Medicine
DX: N63.13 Unspecified lump in the right breast, lower outer quadrant (principal)
CPT/HCPCS: 19083; 88305

== ENCOUNTER 2020-08-29 09:43 | Emergency (ER) | payer OTHER ==
[2020-08-29] MEDS ORDERED: Fentanyl 100 MCG/2 ML VIAL ONE ×3 (10:21→13:51)
[2020-08-29] MEDS ORDERED: Ondansetron PF 4 MG/2 ML Vial ONE ×3 (10:21→12:19)
--- NOTE | 2020-08-29 12:10 | RAD ---
Radiograph right leg tibia-fibula 2 views: 08/29/2020 11:00 AM HISTORY: 54-year-old female status post acute traumatic right leg injury FINDINGS: There are displaced fractures of the medial malleolus and lateral malleolus. There is no fracture of the rest of the tibia or fibula. IMPRESSION: Acute, traumatic Bimalleolar fractures. See separate report of ankle radiograph.
--- NOTE | 2020-08-29 12:12 | RAD ---
Radiograph right foot 3 views: 08/29/2020 HISTORY: 54-year-old female with acute traumatic right foot pain FINDINGS: Surgical defect at medial aspect of first metatarsal head and neck and proximal shaft. Single screw across the first metatarsal neck. Fractures of the ankle. No fracture of the foot proper. No dislocation. IMPRESSION: 1.) No acute right foot fracture identified. 2.) Status post bunionectomy. 3) ankle fractures, acute and traumatic.
--- NOTE | 2020-08-29 12:14 | RAD ---
Radiograph right ankle 3 views: 08/29/2020 11:10 AM HISTORY: 54-year-old female with acute traumatic right ankle pain FINDINGS: Fracture at upper portion of medial malleolus, with moderate inferior and slight lateral displacement of distal fragment. Minimally comminuted oblique fracture of distal fibular metadiaphysis, with lateral angulation and mi ld lateral displacement, of distal fragment. Lateral subluxation of the talus relative to the tibial plafond and. IMPRESSION: Acute, traumatic, displaced bimalleolar fractures with subluxation of tibiotalar joint..
--- NOTE | 2020-08-29 12:14 | RAD ---
EXAM: Chest one view: HISTORY: Injury from trauma COMPARISON: 09/06/2018 FINDINGS: Stable fullness of the right hilar region. Heart size: Within normal limits. Lungs: Clear of acute process. No evidence for confluent lobar pneumonia, significant pleural effusion, acute edema, or pneumothorax , or other significant acute process. IMPRESSION: No significant acute intrathoracic disease. Stable exam.
--- NOTE | 2020-08-29 12:16 | RAD ---
Exam: Left ankle 3 views: HISTORY: Injury from trauma swelling pain COMPARISON: None FINDINGS: Prominent soft tissue swelling particularly laterally and anteriorly. Nondisplaced transverse linear fracture through the distal fibula. IMPRESSION: Nondisplaced distal fibular fracture with soft tissue swelling.
[2020-08-29] MEDS ORDERED: Ketamine 50 MG/ML (10ML VIAL) ONE (12:19)
--- NOTE | 2020-08-29 13:23 | RAD ---
Radiograph right ankle 3 views: 08/29/2020 1:00 PM HISTORY: 54-year-old female with acute, traumatic right ankle fracture. COMPARISON: 08/29/2020 11:10 AM FINDINGS: The ankle has been placed into a splint. With better positioning, a mildly displaced posterior malleo radha fracture is demonstrated. There is interval improvement in alignment of the lateral and medial malleoli are fractures, now near ly anatomical. The subluxation of the tibiotalar joint has been reduced, and is now nearly anatomical except for slight widening of the superomedial corner of the ankle mortise. IMPRESSION: Status post reduction with improved alignment of the trimalleolar acute traumatic right ankle fractur es-subluxation.
[2020-08-29] MEDS ORDERED: Ketorolac Tromethamine 30 MG/ML VIAL ONE (13:37)
[2020-08-29] MEDS ORDERED: Acetaminophen 500 MG TAB ONE (13:50)
== END 2020-08-29 15:00 | disposition home or self-care (01) ==
LOC: ERS 09:43
DX: S82.851A Displaced trimalleolar fracture of right lower leg, initial encounter for closed fracture (principal); S82.832A Other fracture of upper and lower end of left fibula, initial encounter for closed fracture; E03.9 Hypothyroidism, unspecified; Z79.899 Other long term (current) drug therapy; X50.1XXA Overexertion from prolonged static or awkward postures, initial encounter; Y92.096 Garden or yard of other non-institutional residence as the place of occurrence of the external cause
CPT/HCPCS: 27786; 27818; 71045; 96374; 96375; 96376; 99156; 99157; J1885; J2405; J3010

== ENCOUNTER 2020-09-01 06:08 | Outpatient (CLI) | payer OTHER ==
[2020-09-01 18:11] LABS: Anion Gap 19 mmol/L (10-20); BUN (Urea Nitrogen) 18 mg/dL (9.8-20.1); Calc. Creatinine Clearance 0 mL/min (70-130); Calcium 8.8 mg/dL (7.8-10.44); Carbon Dioxide 21 mmol/L (22-29); Chloride 105 mmol/L (98-107); Estimated GFR-MDRD 77; Glucose 95 mg/dL (70-105); Potassium 3.8 mmol/L (3.5-5.1); Sodium 141 mmol/L (136-145)
[2020-09-01 18:31] LABS: #Basophils 0.1 10x3/uL (0.0-0.2); #Eosinphils 0.1 10x3/uL (0.0-0.5); #Monocytes 0.7 10x3/uL (0.0-1.1); #Neutrophils 5.8 10x3/uL (1.5-8.4); %Basophils 0.6 % (0.0-2.0); %Eosinophils 0.7 % (0.0-6.0); %Lymphocytes 17.9 % (18.0-47.0); %Monocytes 8.3 % (0.0-10.0); %Neutrophils 72.3 % (40.0-75.0); Hemoglobin 13.1 g/dL (12.0-16.0); Mean Corpuscular HGB CONC 32.7 G/DL (32.0-36.0); Mean Corpuscular Hemoglobin 30.7 PG (27.0-33.0); Mean Corpuscular Volume 93.9 fl (80.0-100.0); Platelet Count 258 10x3/uL (130-400); RBC Distribution Width 12.4 % (11.5-14.5); Red Blood Cell (RBC) Count 4.27 10x6/uL (3.90-5.20); White Blood Cell (WBC) Count 8.1 10x3/uL (4.5-11.0)
[2020-09-02 12:07] LABS: SARS-CoV-2 MS2 Positive; SARS-CoV-2 N Gene Negative; SARS-CoV-2 S Gene Negative; SARS-CoV-2 by NAA Not Detected (NotDetected); SARS-CoV-2 orf1ab Negative
== END 2020-09-01 06:09 | disposition home or self-care (01) ==
LOC: LABBT 06:08
PROVIDERS: ATTEND Orthopaedic Surgery
DX: Z01.818 Encounter for other preprocedural examination (principal); S82.851A Displaced trimalleolar fracture of right lower leg, initial encounter for closed fracture; Z20.828 Contact with and (suspected) exposure to other viral communicable diseases
CPT/HCPCS: 80048; 85025; 87635; 93005; 93010; U0003

== ENCOUNTER 2020-09-03 08:21 | Day surgery (SDC) | payer OTHER ==
[2020-09-02 10:07] VITALS: BMI 27.1
[2020-09-03] MEDS ORDERED: Clindamycin/D5W 900 mg/50 ml Premix Bag ONE (08:41)
[2020-09-03] MEDS ORDERED: Levofloxacin 500 mg/D5W 100 ml Premix Bag ONE (08:41)
[2020-09-03] MEDS ORDERED: Midazolam HCl 2 mg/2 ml Vial ONE ×2 (08:59→12:07)
[2020-09-03] MEDS ORDERED: Fentanyl 100 MCG/2 ML VIAL ONE ×2 (09:00→09:20)
[2020-09-03] MEDS ORDERED: Zolpidem Tartrate 5 MG TAB PO PRN (10:15)
[2020-09-03] MEDS ORDERED: Ropivacaine 0.2% 550 ML 550 ML NERVE BLCK SCH (10:15)
[2020-09-03] MEDS ORDERED: Ketorolac Tromethamine 30 MG/ML VIAL IVP PRN (10:15)
[2020-09-03] MEDS ORDERED: HYDROcodone/Acetaminophen 10/325 mg Tablet PO PRN ×2 (10:15)
[2020-09-03] MEDS ORDERED: traMADol HCl 50 MG TAB PO PRN ×2 (10:15)
[2020-09-03] MEDS ORDERED: Promethazine HCl 25 MG/ML VIAL IM PRN (10:15)
[2020-09-03] MEDS ORDERED: Ondansetron PF 4 MG/2 ML Vial IVP PRN (10:15)
[2020-09-03] MEDS ORDERED: Fentanyl 100 MCG/2 ML VIAL IV PRN (10:16)
[2020-09-03] MEDS ORDERED: Lidocaine 1% PF 5 ML VIAL ONE (10:25)
[2020-09-03] MEDS ORDERED: Ropivacaine 0.5% HCl/PF (150 MG/30 ML VIAL) ONE (10:25)
[2020-09-03] MEDS ORDERED: Ondansetron PF 4 MG/2 ML Vial ONE (10:25)
[2020-09-03] MEDS ORDERED: Rocuronium Bromide 10 MG/ML (10ML VIAL) ONE (10:25)
[2020-09-03] MEDS ORDERED: ePHEDrine 50 MG/ML VIAL ONE (10:25)
[2020-09-03] MEDS ORDERED: PROPOFOL 200 MG/20 ML VIAL ONE (10:25)
[2020-09-03] MEDS ORDERED: Bupivacaine HCl 0.5%/Epinephrine 1:200,000/PF 30 ml Vial ONE (10:25)
[2020-09-03] MEDS ORDERED: Dexamethasone 20 MG/5 ML VIAL ONE (10:25)
[2020-09-03] MEDS ORDERED: Glycopyrrolate 0.2 MG/ML 5 ML SYRINGE ONE (10:25)
[2020-09-03] MEDS ORDERED: Ropivacaine 0.2% HCl/PF (40 MG/20 ML VIAL) ONE (10:25)
[2020-09-03] MEDS ORDERED: SUGAMMADEX SODIUM 200 MG/2 ML VIAL ONE (11:45)
[2020-09-03] MEDS ORDERED: Sodium Chloride For Inhalation 0.9% 3 ML NEB ONE (12:00)
[2020-09-03] MEDS ORDERED: Nitroglycerin 0.4 MG TAB (25 Tab Bottle) ONE (12:25)
--- NOTE | 2020-09-03 12:54 | RAD ---
PORTABLE CHEST 1 VIEW: DATE: 09/03/2020. TIME: 12:21 PM. HISTORY: Cough. FINDINGS/IMPRESSION: Comparison is made with the exam of 08/29/2020. There is continued elevation of the right hemidiaphragm. There is a patchy opacity in the right lowe r lung. There is prominence of the interstitial markings. No pneumothoraces or large effusions are seen. The possibility of pneumonia should be considered. POS: AH
--- NOTE | 2020-09-03 14:12 | OP ---
DATE OF PROCEDURE: 09/03/2020 PREOPERATIVE DIAGNOSIS: Trimalleolar ankle fracture of the right with a posterior lip. POSTOPERATIVE DIAGNOSIS: Trimalleolar ankle fracture with posterior lip fracture internal fixation. EXPERIMENTAL TECHNICIAN: Quoc Mina PA-C BLOOD LOSS: Minimal. SPECIMEN: None. DRAINS: None. COMPLICATIONS: None. DESCRIPTION OF PROCEDURE: The visitor use assistant/co-surgeon was present through the entire procedure and was responsible for providing exposure, tissue retraction and any necessary limb or tissue manipulation required to obtain necessary reduction or hardware placement. The visitor use assistant/co-surgeon also provided bleeding control, tissue closure, and suturing in conjunction with the primary surgeon. Right leg was prepped and draped in the usual sterile fashion. After exsanguination, tourniquet was inflated to 300 mmHg. A longitudinal incision was made over the lateral malleolus. It was quite comminuted. We dissected down to subperiosteally while I help the fracture reduced and PA molded the fracture and applied a plate and contoured the plate, selected appropriately. Screws were inserted in the usual technique and checked on fluoroscopy, appeared to be appropriate length. The medial malleolus was exposed through a longitudinal incision. Subperiosteal dissection exposed the fracture. Fracture was displaced and hematoma and a provisional callus was removed. The fracture was anatomically reduced. Two K-wires were placed across the fracture and a 4-0 cannulated screws were placed, applying excellent compression across the fracture. The posterior lip was still slightly displaced, but we manipulated the posterior lip. I placed a single AP 4-0 cancellous screw percutaneously. Tourniquet was released. Irrigation performed. Subcutaneous tissue was closed with 2-0 Vicryl. Skin was closed with ce. Sterile dressings applied. The patient placed in a well-padded posterior splint. There were no complications. Job ID: [id number]
--- NOTE | 2020-09-03 18:26 | RAD ---
EXAM: 2 views of the right ankle HISTORY: Tibia/fibula fractures COMPARISON: 08/29/2020 FINDINGS: 2 limited intraoperative fluoroscopic views views of the right ankle shows the patient is o ngoing ORIF of the distal fibula fracture with a plate and screws and of the tibial fractures with screws . No perihardware lucency is seen. No degenerative changes are present. IMPRESSION: Status post ORIF of tibia/fibular fractures
== END 2020-09-03 16:30 | disposition home or self-care (01) ==
LOC: SDC 08:21
PROVIDERS: ATTEND Orthopaedic Surgery
PROC: 0QSG04Z Reposition Right Tibia with Internal Fixation Device, Open Approach (ICD-10-PCS; principal; 2020-09-03)
PROC: 0QSJ04Z Reposition Right Fibula with Internal Fixation Device, Open Approach (ICD-10-PCS; principal; 2020-09-03)
DX: S82.851A Displaced trimalleolar fracture of right lower leg, initial encounter for closed fracture (principal); I10 Essential (primary) hypertension; E03.9 Hypothyroidism, unspecified; Z79.899 Other long term (current) drug therapy; Z88.1 Allergy status to other antibiotic agents; Z88.5 Allergy status to narcotic agent; Z88.8 Allergy status to other drugs, medicaments and biological substances; W19.XXXA Unspecified fall, initial encounter
CPT/HCPCS: 71045; 76000; 93005; 93010; A4306; C1713; C1769; J1100; J1956; J2250; J2405; J2704; J2795; J3010; J3490; J7620

== ENCOUNTER 2020-10-11 14:12 | Outpatient (CLI) | payer OTHER ==
--- NOTE | 2020-10-11 14:54 | BD ---
DEXA BONE DENSITY STUDY: HISTORY: Post menopausal. FINDINGS: Lumbar Spine: BMD (g/cm2) L1 1.025 T-Score: +0.3 L2 0.966 T-Score: -0.6 L3 0.878 T-Score: -1.9 L4 0.960 T-Score: -0.9 L1-L4 0.958 T-Score: -0.8 Femoral Neck: 0.684 T-Score: -1.5 Total Femur: 0.894 T-Score: -0.4 Impression: 1. Osteopenia of left femoral neck. Normal bone mineral density of the lumbar spine. 2. [id number] fracture risk for major osteoporotic fracture is 11% and of hip fracture 0.9%. These fr acture probabilities are calculated for an untreated patient. POS: ROSITA
== END 2020-10-11 14:13 | disposition home or self-care (01) ==
LOC: BICMAMMO 14:12
PROVIDERS: ATTEND Family Medicine
DX: E89.41 Symptomatic postprocedural ovarian failure (principal); S82.891A Other fracture of right lower leg, initial encounter for closed fracture; M85.89 Other specified disorders of bone density and structure, multiple sites
CPT/HCPCS: 77080

== ENCOUNTER 2022-07-20 11:45 | Outpatient (CLI) | payer BC | END 2022-07-20 11:46 | disposition home or self-care (01) | LOC: PET 11:45 | PROVIDERS: ATTEND Family Medicine | DX: C50.912 Malignant neoplasm of unspecified site of left female breast (principal) | CPT/HCPCS: 78815; A9552 ==

== ENCOUNTER 2022-07-27 14:01 | Outpatient (CLI) | payer BC | END 2022-07-27 14:02 | disposition home or self-care (01) | LOC: BICULT 14:01 | PROVIDERS: ATTEND Family Medicine | DX: M79.89 Other specified soft tissue disorders (principal); R22.1 Localized swelling, mass and lump, neck | CPT/HCPCS: 76536; 76999 ==

== ENCOUNTER 2023-06-13 12:00 | Outpatient (CLI) | payer BC | END 2023-06-13 12:01 | disposition home or self-care (01) | LOC: SCSMRI 12:00 | PROVIDERS: ATTEND Family Medicine | DX: M50.30 Other cervical disc degeneration, unspecified cervical region (principal); M47.812 Spondylosis without myelopathy or radiculopathy, cervical region | CPT/HCPCS: 72141 ==